=== PATIENT | female | born 1945 | race Hispanic/Latino ===

== ENCOUNTER → 2017-07-07 | Outpatient (CLI) | payer MEDICARE ==
[~2017-07-07] MED LIST: ATOR20TA65 PO; CHOL100018 PO; CLIN300C9 PO; CYCL30DR OU; ESOM40CA PO; FENO43CA5 PO; FLUT1AER IH; GABA-529 PO; HYDR-4060 PO; LEVOTHYROXIN PO; LORA0.5T2 PO; LOSA50TA37 PO; MECL-111 PO; MILN25TA PO; MOME17N PUFF; MONT10TA24 PO; PROAIR HFA IH; RENA VITE PO; TIZA2TAB4 PO; TRAM-355 PO
== END | disposition home or self-care (01) ==
LOC: RAH 08:45
PROVIDERS: ATTEND Internal Medicine Gastroenterology
DX: K21.9 Gastro-esophageal reflux disease without esophagitis (principal); K57.10 Diverticulosis of small intestine without perforation or abscess without bleeding
CPT/HCPCS: 74240

== ENCOUNTER → 2017-07-12 | Outpatient (CLI) | payer MEDICARE ==
[~2017-07-12] MED LIST changes: +IOPAMIDOL-370 75 ML VIAL IV ONE
== END | disposition home or self-care (01) ==
LOC: OIH 08:14
PROVIDERS: ATTEND Internal Medicine Gastroenterology
DX: K57.90 Diverticulosis of intestine, part unspecified, without perforation or abscess without bleeding (principal); K43.9 Ventral hernia without obstruction or gangrene; M47.895 Other spondylosis, thoracolumbar region; I70.0 Atherosclerosis of aorta; Z98.890 Other specified postprocedural states
CPT/HCPCS: 74178; Q9967

== ENCOUNTER → 2019-12-25 | Outpatient (CLI) | payer MEDICARE ==
[~2019-12-25] MED LIST changes: -FENO43CA5 PO; +FENO43CA8 PO; -IOPAMIDOL-370 75 ML VIAL IV ONE; -LOSA50TA37 PO; +LOSA50TA64 PO; -MECL-111 PO; +MECL-160 PO; -MONT10TA24 PO; +MONT10TA26 PO; +TIZA2TAB PO; -TIZA2TAB4 PO
== END | disposition home or self-care (01) ==
LOC: RAH 09:57
PROVIDERS: ATTEND Family Medicine
DX: K76.0 Fatty (change of) liver, not elsewhere classified (principal); K42.9 Umbilical hernia without obstruction or gangrene
CPT/HCPCS: 76705; 78264; A9541

== ENCOUNTER → 2022-07-14 | Outpatient (CLI) | payer MEDICARE ==
[~2022-07-14] MED LIST changes: +CLIN-141 PO; -CLIN300C9 PO; +IOHEXOL 350 MG/ML 100ML INFUS..BTL IV ONE; -MOME17N PUFF; +MOME17SP4 PUFF; +MONT-39 PO; -MONT10TA26 PO; +TIZA-194 PO; -TIZA2TAB PO
== END | disposition home or self-care (01) ==
LOC: RAH 07:33
PROVIDERS: ATTEND Physician Assistant Medical
DX: R10.9 Unspecified abdominal pain (principal)
CPT/HCPCS: 74178; Q9967

== ENCOUNTER → 2023-06-02 | Outpatient (CLI) | payer MEDICARE ==
[~2023-06-02] MED LIST changes: -IOHEXOL 350 MG/ML 100ML INFUS..BTL IV ONE; -MECL-160 PO; +MECL-302 PO
== END | disposition home or self-care (01) ==
LOC: RAH 07:15
PROVIDERS: ATTEND Internal Medicine Gastroenterology
DX: R10.11 Right upper quadrant pain (principal)
CPT/HCPCS: 78227; A9537

== ENCOUNTER → 2023-07-15 | Outpatient (CLI) | payer MEDICARE | END | disposition home or self-care (01) | LOC: RAH 11:31 | PROVIDERS: ATTEND Family Medicine | DX: M19.011 Primary osteoarthritis, right shoulder (principal); M19.031 Primary osteoarthritis, right wrist; M25.511 Pain in right shoulder; M25.531 Pain in right wrist | CPT/HCPCS: 73030; 73110 ==

== ENCOUNTER → 2024-10-23 | Outpatient (CLI) | payer MEDICARE ==
[~2024-10-23] MED LIST changes: -TRAM-355 PO; +TRAM-543 PO
--- NOTE | 2024-10-23 10:17 | HMCIMG ---
MR KNEE LEFT WO HISTORY: Neuropathic pain COMPARISON: None TECHNIQUE: MRI of the left knee was performed utilizing multiple pulse sequences in axial, coronal and sagittal planes. Patient was not given contrast through intravenous route. FINDINGS: No abnormal signal intensity is seen of the visualized bony structure. The anterior cruciate and posterior cruciate ligaments are grossly intact. The medial and lateral collateral ligaments are also intact. Quadriceps tendon and patellar tendon are within normal limits. There is intrasubstance tear involving the medial and lateral menisci. If needed, MR arthrogram may be helpful. Tiny Rodriguez's cyst is seen. Tiny joint effusion is seen. There are degenerative changes. IMPRESSION: 1. Intrasubstance tear noted of the medial and lateral menisci. If needed, MR arthrogram may be helpful. There may be subtle medial meniscal tear involving posterior horn with superior articular extension.
== END | disposition home or self-care (01) ==
LOC: RAH 07:59
PROVIDERS: ATTEND Family Medicine
DX: S83.282A Other tear of lateral meniscus, current injury, left knee, initial encounter (principal); S83.242A Other tear of medial meniscus, current injury, left knee, initial encounter; M17.12 Unilateral primary osteoarthritis, left knee; M71.22 Synovial cyst of popliteal space [Baker], left knee; M25.462 Effusion, left knee; X58.XXXA Exposure to other specified factors, initial encounter; Y93.89 Activity, other specified; Y92.89 Other specified places as the place of occurrence of the external cause; Y99.8 Other external cause status
CPT/HCPCS: 73721